=== PATIENT | female | born 1965 | race Two or more races ===

== ENCOUNTER 2016-07-26 08:13 | Outpatient (CLI) | payer BC ==
[2016-07-26 09:21] LABS: BASOPHILS % (AUTO) 0.6 % (0.0-2.0); DIFF TOTAL % 100 %; EOSINOPHILS # (AUTO) 0.4 /CMM (0.0-0.7); EOSINOPHILS % (AUTO) 5.5 % (0.0-6.0); HEMATOCRIT 48 % (33-45); LYMPHOCYTES # (AUTO) 2.2 /CMM (0.8-4.8); LYMPHOCYTES % (AUTO) 28.5 % (20.0-44.0); MEAN CORPUSCULAR HEMOGLOBIN 29 PG (26.0-33.0); MEAN CORPUSCULAR HGB CONC 34 g/dl (31.0-36.0); MEAN CORPUSCULAR VOLUME 85 fL (82-100); MONOCYTES # (AUTO) 0.5 /CMM (0.1-1.30); MONOCYTES % (AUTO) 6.4 % (2.0-12.0); NEUTROPHILS # (AUTO) 4.5 /CMM (1.8-8.9); PLATELET COUNT (AUTO) 309 /CMM (150-450); RED BLOOD CELL COUNT(AUTO) 5.61 MIL/uL (4.0-5.2); WHITE BLOOD COUNT (AUTO) 7.6 K/uL (4.3-11.0)
[2016-07-26 09:23] LABS: ADD UA MICROSCOPIC NO; KETONES,URINE NEGATIVE (NEGATIVE); LEUKOCYTE ESTERASE ,URINE NEGATIVE (NEGATIVE); PH,URINE 5.5 (5.0-8.0)
[2016-07-26 09:38] LABS: ALBUMIN 3.9 g/dL (3.4-5.0); BILIRUBIN,TOTAL 0.5 mg/dL (0.2-1.0); CALCIUM, SERUM 9.3 mg/dL (8.5-10.1); CREATININE 0.9 mg/dL (0.6-1.3); POTASSIUM 4.1 mmol/L (3.5-5.1); TOTAL PROTEIN, SERUM 8.1 g/dL (6.4-8.2)
[2016-07-26 09:42] LABS: THYROID STIMULATING HORMONE 0.976 uIU/mL (0.358-3.74); URIC ACID 6.6 mg/dL (2.6-7.2)
== END 2016-07-26 23:59 | disposition home or self-care (01) ==
LOC: LAB 08:13
PROVIDERS: ATTEND Family Medicine
DX: M54.9 Dorsalgia, unspecified (principal); I10 Essential (primary) hypertension; M77.32 Calcaneal spur, left foot; M12.88 Other specific arthropathies, not elsewhere classified, other specified site; M25.521 Pain in right elbow; M79.672 Pain in left foot
CPT/HCPCS: 36415; 72100-TC; 73080-TC; 73630-TC; 80053-TC; 80061-TC; 81000-TC; 84439-TC; 84443-TC; 84550-TC; 85025-TC; 86431-TC

== ENCOUNTER 2016-07-29 08:11 | Outpatient (CLI) | payer BC | END 2016-07-29 23:59 | disposition home or self-care (01) | LOC: US 08:11 | PROVIDERS: ATTEND Family Medicine | DX: M54.9 Dorsalgia, unspecified (principal); M25.521 Pain in right elbow; M79.672 Pain in left foot | CPT/HCPCS: 76770-TC ==

== ENCOUNTER 2017-06-16 08:35 | Outpatient (CLI) | payer BC ==
[2017-06-16 09:57] LABS: APPEARANCE,URINE CLEAR (CLEAR); BILIRUBIN,URINE NEGATIVE (NEGATIVE); BLOOD, URINE NEGATIVE Ery/uL (NEGATIVE); COLOR,URINE YELLOW (YELLOW); KETONES,URINE NEGATIVE (NEGATIVE); LEUKOCYTE ESTERASE ,URINE NEGATIVE (NEGATIVE); NITRITE, URINE NEGATIVE (NEGATIVE); PH,URINE 5.5 (5.0-8.0); PROTEIN,URINE NEGATIVE (NEGATIVE); UGLUCOSE NEGATIVE (NEGATIVE); UROBILINOGEN,URINE 0.2 EU/dL (0.2)
[2017-06-16 10:32] LABS: ALBUMIN 3.9 g/dL (3.4-5.0); BILIRUBIN,TOTAL 0.4 mg/dL (0.2-1.0); CALCIUM, SERUM 8.9 mg/dL (8.5-10.1); CREATININE 0.8 mg/dL (0.6-1.3); POTASSIUM 3.5 mmol/L (3.5-5.1); TOTAL PROTEIN, SERUM 8.1 g/dL (6.4-8.2)
[2017-06-16 10:33] LABS: BASOPHILS # (AUTO) 0.1 /CMM (0.0-0.2); BASOPHILS % (AUTO) 0.7 % (0.0-2.0); EOSINOPHILS # (AUTO) 0.7 /CMM (0.0-0.7); EOSINOPHILS % (AUTO) 10.1 % (0.0-6.0); HEMATOCRIT 42 % (33-45); HEMOGLOBIN 14.6 g/dL (11.5-14.8); LYMPHOCYTES # (AUTO) 2.4 /CMM (0.8-4.8); LYMPHOCYTES % (AUTO) 32.6 % (20.0-44.0); MEAN CORPUSCULAR HEMOGLOBIN 29 PG (26.0-33.0); MEAN CORPUSCULAR HGB CONC 34 g/dl (31.0-36.0); MEAN CORPUSCULAR VOLUME 84 fL (82-100); MONOCYTES # (AUTO) 0.7 /CMM (0.1-1.30); MONOCYTES % (AUTO) 10.1 % (2.0-12.0); NEUTROPHILS # (AUTO) 3.4 /CMM (1.8-8.9); NEUTROPHILS % (AUTO) 46.5 % (43.0-81.0); PLATELET COUNT (AUTO) 314 /CMM (150-450); RDW COEFFICIENT OF VARIATION 11.9 (11.5-15.0); RED BLOOD CELL COUNT(AUTO) 5.03 MIL/uL (4.0-5.2); WHITE BLOOD COUNT (AUTO) 7.3 K/uL (4.3-11.0)
[2017-06-16 10:41] LABS: THYROID STIMULATING HORMONE 2.627 uIU/mL (0.358-3.74)
== END 2017-06-16 23:59 | disposition home or self-care (01) ==
LOC: LAB 08:35
PROVIDERS: ATTEND Family Medicine
DX: Z00.01 Encounter for general adult medical examination with abnormal findings (principal); Z11.59 Encounter for screening for other viral diseases; E55.9 Vitamin D deficiency, unspecified; E73.9 Lactose intolerance, unspecified; I10 Essential (primary) hypertension
CPT/HCPCS: 36415; 71046; 80053-TC; 80061-TC; 81000-TC; 82306; 84439-TC; 84443-TC; 85025-TC; 86706; 86709-TC; 86803

== ENCOUNTER 2017-11-09 08:27 | Outpatient (CLI) | payer BC ==
[2017-11-09 09:01] LABS: APPEARANCE,URINE CLEAR (CLEAR); BILIRUBIN,URINE NEGATIVE (NEGATIVE); BLOOD, URINE NEGATIVE Ery/uL (NEGATIVE); COLOR,URINE YELLOW (YELLOW); KETONES,URINE NEGATIVE (NEGATIVE); LEUKOCYTE ESTERASE ,URINE TRACE (NEGATIVE); NITRITE, URINE NEGATIVE (NEGATIVE); PH,URINE 5.5 (5.0-8.0); PROTEIN,URINE NEGATIVE (NEGATIVE); UGLUCOSE NEGATIVE (NEGATIVE); UROBILINOGEN,URINE 0.2 EU/dL (0.2)
[2017-11-09 09:21] LABS: BACTERIA,URINE None seen /HPF (None Seen); RBC,URINE NONE SEEN /HPF (0-2); SQUAMOUS EPITHELIAL CELL,UR Few /HPF (None Seen); WBC,URINE 0-2 /HPF (0-3)
== END 2017-11-09 23:59 | disposition home or self-care (01) ==
LOC: LAB 08:27
PROVIDERS: ATTEND Family Medicine
DX: M54.5 Low back pain (principal)
CPT/HCPCS: 81000-TC

== ENCOUNTER → 2017-12-16 | Outpatient (CLI) | payer BC | END | disposition home or self-care (01) | LOC: LAB 08:31 | PROVIDERS: ATTEND Family Medicine | DX: Z12.4 Encounter for screening for malignant neoplasm of cervix (principal); Z11.3 Encounter for screening for infections with a predominantly sexual mode of transmission | CPT/HCPCS: 87491; 87591; 88142 ==

== ENCOUNTER 2018-12-07 08:07 | Outpatient (CLI) | payer BC | END 2018-12-07 23:59 | disposition home or self-care (01) | LOC: CARD 08:07 | PROVIDERS: ATTEND Family Medicine | DX: M17.12 Unilateral primary osteoarthritis, left knee (principal); I70.0 Atherosclerosis of aorta; I51.7 Cardiomegaly | CPT/HCPCS: 71046; 73562; 93307-TC ==

== ENCOUNTER 2019-03-22 07:34 | Outpatient (CLI) | payer BC ==
[2019-03-22 08:42] LABS: BASOPHILS # (AUTO) 0.1 /CMM (0.0-0.2); EOSINOPHILS % (AUTO) 6.9 % (0.0-6.0); HEMATOCRIT 42 % (33-45); LYMPHOCYTES # (AUTO) 2.1 /CMM (0.8-4.8); LYMPHOCYTES % (AUTO) 23.3 % (20.0-44.0); MEAN CORPUSCULAR HGB CONC 34 g/dl (31.0-36.0); MEAN CORPUSCULAR VOLUME 86 fL (82-100); MONOCYTES # (AUTO) 0.7 /CMM (0.1-1.30); MONOCYTES % (AUTO) 7.6 % (2.0-12.0); NEUTROPHILS # (AUTO) 5.5 /CMM (1.8-8.9); NEUTROPHILS % (AUTO) 61.2 % (43.0-81.0); PLATELET COUNT (AUTO) 327 /CMM (150-450); RED BLOOD CELL COUNT(AUTO) 4.84 MIL/uL (4.0-5.2)
[2019-03-22 08:55] LABS: APPEARANCE,URINE Clear (CLEAR); BILIRUBIN,URINE Negative (NEGATIVE); BLOOD, URINE Negative Ery/uL (NEGATIVE); COLOR,URINE Yellow (YELLOW); KETONES,URINE Negative (NEGATIVE); LEUKOCYTE ESTERASE ,URINE Negative (NEGATIVE); NITRITE, URINE Negative (NEGATIVE); PROTEIN,URINE Negative (NEGATIVE); UGLUCOSE Negative (NEGATIVE); UROBILINOGEN,URINE 0.2 EU/dL (0.2)
[2019-03-22 08:56] LABS: ALBUMIN 3.9 g/dL (3.4-5.0); BILIRUBIN,TOTAL 0.3 mg/dL (0.2-1.0); CREATININE 0.8 mg/dL (0.6-1.3); POTASSIUM 3.1 mmol/L (3.5-5.1)
[2019-03-22 09:03] LABS: THYROID STIMULATING HORMONE 2.115 uIU/mL (0.358-3.74)
== END 2019-03-22 23:59 | disposition home or self-care (01) ==
LOC: LAB 07:34
PROVIDERS: ATTEND Family Medicine
DX: R73.9 Hyperglycemia, unspecified (principal)
CPT/HCPCS: 36415; 80053-TC; 80061-TC; 81000-TC; 84439-TC; 84443-TC; 85025-TC

== ENCOUNTER 2019-03-23 09:16 | Outpatient (CLI) | payer BC | END 2019-03-23 23:59 | disposition home or self-care (01) | LOC: RAD 09:16 | PROVIDERS: ATTEND Family Medicine | DX: J45.901 Unspecified asthma with (acute) exacerbation (principal); R06.00 Dyspnea, unspecified | CPT/HCPCS: 71046 ==

== ENCOUNTER 2019-07-30 11:50 | Outpatient (CLI) | payer BC | END 2019-07-30 23:59 | disposition home or self-care (01) | LOC: RAD 11:50 | PROVIDERS: ATTEND Family Medicine | DX: M77.32 Calcaneal spur, left foot (principal); M77.31 Calcaneal spur, right foot; M51.36 Other intervertebral disc degeneration, lumbar region; M41.86 Other forms of scoliosis, lumbar region; M48.07 Spinal stenosis, lumbosacral region; M25.512 Pain in left shoulder | CPT/HCPCS: 72110-TC; 73030-TC; 73630-TC ==

== ENCOUNTER 2019-08-14 08:10 | Outpatient (CLI) | payer BC | END 2019-08-14 23:59 | disposition home or self-care (01) | LOC: WOU 08:10 | PROVIDERS: ATTEND Podiatrist Foot & Ankle Surgery | DX: G57.51 Tarsal tunnel syndrome, right lower limb (principal); M72.2 Plantar fascial fibromatosis; M77.31 Calcaneal spur, right foot; M77.32 Calcaneal spur, left foot; M79.671 Pain in right foot; R60.0 Localized edema; I10 Essential (primary) hypertension | CPT/HCPCS: G0463 ==

== ENCOUNTER 2019-11-11 02:00 | Emergency (ER) | payer BC, OTHER ==
[2019-11-11 02:11] VITALS: BP 138/72
--- NOTE | 2019-11-11 02:20 | NUR ---
APR[facility] SENT TO LAB
== END 2019-11-11 02:22 | disposition home or self-care (01) ==
LOC: ER 02:02
DX: Z03.818 Encounter for observation for suspected exposure to other biological agents ruled out (principal)
CPT/HCPCS: 99283; U0003

== ENCOUNTER 2019-12-09 02:08 | Emergency (ER) | payer OTHER ==
[~2019-12-09] VITALS: Ht 165.1 cm; Wt 95.3 kg
[2019-12-09 02:08] VITALS: BP 131/83
--- NOTE | 2019-12-12 | NUR ---
RECEIVED A CALL FROM LAB REPORTING NEGATIVE COVID TEST RESULT
== END 2019-12-09 03:22 | disposition home or self-care (01) ==
LOC: ER 02:08
DX: Z03.818 Encounter for observation for suspected exposure to other biological agents ruled out (principal)
CPT/HCPCS: 99283; C9803; U0003

== ENCOUNTER 2019-12-17 08:14 | Emergency (ER) | payer OTHER ==
[~2019-12-17] VITALS: Ht 165.1 cm; Wt 90.7 kg
[2019-12-17 08:20] VITALS: BP 167/103
--- NOTE | 2019-12-17 08:37 | NUR ---
Patient discharged to home in stable condition. Written and verbal after care instructions given. Patient verbalizes understanding of instruction.
== END 2019-12-17 08:37 | disposition home or self-care (01) ==
LOC: ER 08:18
DX: Z03.818 Encounter for observation for suspected exposure to other biological agents ruled out (principal)
CPT/HCPCS: 99283; C9803; U0003

== ENCOUNTER 2019-12-24 08:38 | Outpatient (CLI) | payer BC | END 2019-12-24 23:59 | disposition home or self-care (01) | LOC: LAB 08:38 | PROVIDERS: ATTEND Family Medicine | DX: Z75.3 Unavailability and inaccessibility of health-care facilities (principal) ==

== ENCOUNTER 2019-12-24 09:22 | Emergency (ER) | payer BC, OTHER ==
[~2019-12-24] VITALS: Ht 165.1 cm; Wt 90.7 kg
[2019-12-24 09:25] VITALS: BP 154/91
== END 2019-12-24 09:51 | disposition home or self-care (01) ==
LOC: ER 09:29
DX: Z03.818 Encounter for observation for suspected exposure to other biological agents ruled out (principal)
CPT/HCPCS: 99283; C9803; U0003

== ENCOUNTER 2020-01-04 03:26 | Emergency (ER) | payer BC, OTHER ==
[~2020-01-04] VITALS: Ht 165.1 cm; Wt 96.6 kg
[2020-01-04 03:34] VITALS: BP 139/83
== END 2020-01-04 03:48 | disposition home or self-care (01) ==
LOC: ER 03:28
DX: Z11.59 Encounter for screening for other viral diseases (principal); J45.909 Unspecified asthma, uncomplicated; I10 Essential (primary) hypertension
CPT/HCPCS: 99283; C9803; U0003

== ENCOUNTER 2020-01-11 02:12 | Emergency (ER) | payer OTHER ==
[~2020-01-11] VITALS: Ht 165.1 cm; Wt 96.6 kg
[2020-01-11 02:19] VITALS: BP 122/75
--- NOTE | 2020-01-11 02:38 | NUR ---
COVID SWAB SENT
--- NOTE | 2020-01-11 21:18 | NUR ---
LAB CALLED REGARDING COVID NEGATIVE RESULT.
== END 2020-01-11 02:38 | disposition home or self-care (01) ==
LOC: ER 02:18
DX: Z11.59 Encounter for screening for other viral diseases (principal); J45.909 Unspecified asthma, uncomplicated
CPT/HCPCS: 99283; C9803; U0003

== ENCOUNTER 2020-01-19 02:11 | Emergency (ER) | payer OTHER ==
[~2020-01-19] VITALS: Ht 165.1 cm; Wt 95.3 kg
[2020-01-19 02:21] VITALS: BP 139/87
== END 2020-01-19 02:32 | disposition home or self-care (01) ==
LOC: ER 02:11
DX: Z11.59 Encounter for screening for other viral diseases (principal); J45.909 Unspecified asthma, uncomplicated; I10 Essential (primary) hypertension
CPT/HCPCS: 99283; C9803; U0003

== ENCOUNTER 2020-01-25 02:12 | Emergency (ER) | payer OTHER ==
[~2020-01-25] VITALS: Ht 165.1 cm; Wt 95.3 kg
[2020-01-25 02:12] VITALS: BP 134/69
== END 2020-01-25 02:42 | disposition home or self-care (01) ==
LOC: ER 02:36
DX: Z20.828 Contact with and (suspected) exposure to other viral communicable diseases (principal); J45.909 Unspecified asthma, uncomplicated; I10 Essential (primary) hypertension
CPT/HCPCS: 99283; C9803; U0003

== ENCOUNTER 2020-02-01 00:40 | Emergency (ER) | payer OTHER ==
[~2020-02-01] VITALS: Ht 165.1 cm; Wt 95.3 kg
[2020-02-01 00:40] VITALS: BP 123/75
--- NOTE | 2020-02-02 06:39 | NUR ---
LAB CALLED REGARDING NEGATIVE COVID RESULT
== END 2020-02-01 01:18 | disposition home or self-care (01) ==
LOC: ER 00:44
DX: Z20.828 Contact with and (suspected) exposure to other viral communicable diseases (principal); I10 Essential (primary) hypertension; J45.909 Unspecified asthma, uncomplicated
CPT/HCPCS: 99283; C9803; U0003

== ENCOUNTER 2020-02-08 01:56 | Emergency (ER) | payer OTHER ==
[~2020-02-08] VITALS: Ht 165.1 cm; Wt 95.3 kg
[2020-02-08 01:58] VITALS: BP 130/73
== END 2020-02-08 02:15 | disposition home or self-care (01) ==
LOC: ER 01:56
DX: Z20.828 Contact with and (suspected) exposure to other viral communicable diseases (principal); J45.909 Unspecified asthma, uncomplicated; I10 Essential (primary) hypertension
CPT/HCPCS: 99283; C9803; U0003

== ENCOUNTER 2020-02-16 01:49 | Emergency (ER) | payer OTHER ==
[~2020-02-16] VITALS: Ht 165.1 cm; Wt 95.3 kg
[2020-02-16 01:55] VITALS: BP 132/62
--- NOTE | 2020-02-16 02:15 | NUR ---
COVID SWAB COLLECT AND SENT TO LAB.
== END 2020-02-16 02:15 | disposition home or self-care (01) ==
LOC: ER 01:49
DX: Z20.828 Contact with and (suspected) exposure to other viral communicable diseases (principal); J45.909 Unspecified asthma, uncomplicated; I10 Essential (primary) hypertension
CPT/HCPCS: 99283; C9803; U0003

== ENCOUNTER 2020-02-19 08:46 | Outpatient (CLI) | payer BC ==
[2020-02-19 09:58] LABS: ALBUMIN 3.6 g/dL (3.4-5.0); BILIRUBIN,TOTAL 0.3 mg/dL (0.2-1.0); CALCIUM, SERUM 8.5 mg/dL (8.5-10.1); CREATININE 0.9 mg/dL (0.6-1.3); POTASSIUM 3.5 mmol/L (3.5-5.1); TOTAL PROTEIN, SERUM 7.8 g/dL (6.4-8.2)
[2020-02-20 16:48] LABS: *ANA ANTI-CENTROMERE B AB <0.2 AI (0.0-0.9); *ANA ANTI-DNA(DS) AB, QN 2 IU/mL (0-9); *ANA ANTI-JO-1 <0.2 AI (0.0-0.9); *ANA ANTICHROMATIN ANTIBODY <0.2 AI (0.0-0.9); *ANA RNP ANTIBODIES 0.2 AI (0.0-0.9); *ANA SJOGREN'S ANTI-SS-A <0.2 AI (0.0-0.9); *ANA SJOGREN'S ANTI-SS-B <0.2 AI (0.0-0.9); *ANAANTI-SCLERODERMA-70 AB <0.2 AI (0.0-0.9); *ANASMITH AB <0.2 AI (0.0-0.9)
== END 2020-02-19 23:59 | disposition home or self-care (01) ==
LOC: LAB 08:46
PROVIDERS: ATTEND Family Medicine
DX: H10.9 Unspecified conjunctivitis (principal)
CPT/HCPCS: 36415; 80053-TC; 86225; 86235; 86431-TC

== ENCOUNTER 2020-02-22 01:28 | Emergency (ER) | payer BC, OTHER ==
[~2020-02-22] VITALS: Ht 165.1 cm; Wt 95.3 kg
[2020-02-22 01:31] VITALS: BP 132/73
== END 2020-02-22 01:54 | disposition home or self-care (01) ==
LOC: ER 01:33
DX: Z20.828 Contact with and (suspected) exposure to other viral communicable diseases (principal); J45.909 Unspecified asthma, uncomplicated; I10 Essential (primary) hypertension
CPT/HCPCS: 99283; C9803; U0003

== ENCOUNTER 2020-03-07 01:24 | Emergency (ER) | payer OTHER ==
[~2020-03-07] VITALS: Ht 167.6 cm; Wt 72.6 kg
[2020-03-07 01:27] VITALS: BP 132/76
== END 2020-03-07 01:38 | disposition home or self-care (01) ==
LOC: ER 01:27
DX: Z20.828 Contact with and (suspected) exposure to other viral communicable diseases (principal); J45.909 Unspecified asthma, uncomplicated; I10 Essential (primary) hypertension
CPT/HCPCS: 99283; C9803; U0003

== ENCOUNTER 2020-03-14 01:09 | Emergency (ER) | payer OTHER ==
[~2020-03-14] VITALS: Ht 167.6 cm; Wt 72.6 kg
[2020-03-14 01:12] VITALS: BP 124/62
== END 2020-03-14 01:24 | disposition home or self-care (01) ==
LOC: ER 01:13
DX: Z20.828 Contact with and (suspected) exposure to other viral communicable diseases (principal); J45.909 Unspecified asthma, uncomplicated; I10 Essential (primary) hypertension
CPT/HCPCS: 99283; C9803; U0003

== ENCOUNTER → 2020-03-20 | Emergency (ER) | payer OTHER ==
[~2020-03-20] VITALS: Ht 167.6 cm; Wt 72.6 kg
[2020-03-20 02:08] VITALS: BP 137/84
--- NOTE | 2020-03-20 02:19 | NUR ---
UNABLE TO DEPART DUE TO [employer] APPLICATION ERROR.
== END | disposition home or self-care (01) ==
LOC: ER 02:04
DX: Z20.828 Contact with and (suspected) exposure to other viral communicable diseases (principal)
CPT/HCPCS: 99283; C9803; U0003

== ENCOUNTER 2020-03-28 01:31 | Emergency (ER) | payer OTHER ==
[~2020-03-28] VITALS: Ht 165.1 cm; Wt 90.7 kg
[2020-03-28 01:43] VITALS: BP 138/98
== END 2020-03-28 01:53 | disposition home or self-care (01) ==
LOC: ER 01:37
DX: Z20.828 Contact with and (suspected) exposure to other viral communicable diseases (principal); I10 Essential (primary) hypertension
CPT/HCPCS: 99283; U0003; C9803

== ENCOUNTER 2020-04-04 02:53 | Emergency (ER) | payer OTHER ==
[~2020-04-04] VITALS: Ht 165.1 cm; Wt 90.7 kg
[2020-04-04 02:54] VITALS: BP 124/62
== END 2020-04-04 03:08 | disposition home or self-care (01) ==
LOC: ER 02:53
DX: Z20.828 Contact with and (suspected) exposure to other viral communicable diseases (principal); I10 Essential (primary) hypertension; J45.909 Unspecified asthma, uncomplicated
CPT/HCPCS: 99283; C9803; U0003

== ENCOUNTER 2020-04-12 02:15 | Emergency (ER) | payer OTHER ==
[~2020-04-12] VITALS: Ht 165.1 cm; Wt 90.7 kg
[2020-04-12 02:15] VITALS: BP 121/77
== END 2020-04-12 02:30 | disposition home or self-care (01) ==
LOC: ER 02:15
DX: Z20.828 Contact with and (suspected) exposure to other viral communicable diseases (principal); I10 Essential (primary) hypertension; J45.909 Unspecified asthma, uncomplicated
CPT/HCPCS: 99283; C9803; U0003

== ENCOUNTER 2020-04-17 04:05 | Emergency (ER) | payer OTHER ==
[~2020-04-17] VITALS: Ht 165.1 cm; Wt 90.7 kg
[2020-04-17 04:05] VITALS: BP 124/62
== END 2020-04-17 04:17 | disposition home or self-care (01) ==
LOC: ER 04:07
DX: Z20.828 Contact with and (suspected) exposure to other viral communicable diseases (principal); J45.909 Unspecified asthma, uncomplicated; I10 Essential (primary) hypertension
CPT/HCPCS: 99283; C9803; U0003

== ENCOUNTER 2020-05-01 03:45 | Emergency (ER) | payer OTHER ==
[~2020-05-01] VITALS: Ht 165.1 cm; Wt 90.7 kg
[2020-05-01 03:46] VITALS: BP 148/79
== END 2020-05-01 03:53 | disposition home or self-care (01) ==
LOC: ER 03:48
DX: Z20.828 Contact with and (suspected) exposure to other viral communicable diseases (principal); J45.909 Unspecified asthma, uncomplicated; I10 Essential (primary) hypertension
CPT/HCPCS: 99283; C9803; U0003

== ENCOUNTER 2020-05-08 04:21 | Emergency (ER) | payer OTHER ==
[~2020-05-08] VITALS: Ht 165.1 cm; Wt 90.7 kg
[2020-05-08 04:27] VITALS: BP 122/68
== END 2020-05-08 04:31 | disposition home or self-care (01) ==
LOC: ER 04:21
DX: Z20.828 Contact with and (suspected) exposure to other viral communicable diseases (principal); J45.909 Unspecified asthma, uncomplicated
CPT/HCPCS: 99283; C9803; U0003

== ENCOUNTER 2020-05-17 02:30 | Emergency (ER) | payer OTHER ==
[~2020-05-17] VITALS: Ht 165.1 cm; Wt 90.7 kg
[2020-05-17 02:34] VITALS: BP 127/79
== END 2020-05-17 03:03 | disposition home or self-care (01) ==
LOC: ER 02:36
DX: Z20.828 Contact with and (suspected) exposure to other viral communicable diseases (principal); J45.909 Unspecified asthma, uncomplicated; I10 Essential (primary) hypertension
CPT/HCPCS: 99283; C9803; U0003

== ENCOUNTER 2020-05-24 07:05 | Emergency (ER) | payer OTHER ==
[~2020-05-24] VITALS: Ht 165.1 cm; Wt 90.7 kg
[2020-05-24 07:08] VITALS: BP 134/62
--- NOTE | 2020-05-24 07:50 | NUR ---
covid 19 swab collected and sent to lab
--- NOTE | 2020-05-24 07:55 | NUR ---
Patient discharged to home in stable condition. Written and verbal after care instructions given. Patient verbalizes understanding of instruction.
== END 2020-05-24 07:55 | disposition home or self-care (01) ==
LOC: ER 07:06
DX: Z20.828 Contact with and (suspected) exposure to other viral communicable diseases (principal); J45.909 Unspecified asthma, uncomplicated; I10 Essential (primary) hypertension
CPT/HCPCS: 99283; C9803; U0003

== ENCOUNTER 2020-05-29 03:58 | Emergency (ER) | payer OTHER ==
[~2020-05-29] VITALS: Ht 165.1 cm; Wt 90.7 kg
[2020-05-29 04:00] VITALS: BP 132/64
== END 2020-05-29 04:17 | disposition home or self-care (01) ==
LOC: ER 03:58
DX: Z20.828 Contact with and (suspected) exposure to other viral communicable diseases (principal)
CPT/HCPCS: 99283; C9803; U0003

== ENCOUNTER 2020-06-07 02:52 | Emergency (ER) | payer OTHER ==
[~2020-06-07] VITALS: Ht 165.1 cm; Wt 90.7 kg
[2020-06-07 02:54] VITALS: BP 125/64
== END 2020-06-07 03:30 | disposition home or self-care (01) ==
LOC: ER 02:53
DX: Z20.828 Contact with and (suspected) exposure to other viral communicable diseases (principal)
CPT/HCPCS: 99283; C9803; U0003

== ENCOUNTER 2020-06-12 02:09 | Emergency (ER) | payer OTHER ==
[~2020-06-12] VITALS: Ht 162.6 cm; Wt 76.2 kg
[2020-06-12 02:11] VITALS: BP 126/73
== END 2020-06-12 02:28 | disposition home or self-care (01) ==
LOC: ER 02:09
DX: Z20.828 Contact with and (suspected) exposure to other viral communicable diseases (principal)
CPT/HCPCS: 99283; C9803; U0003

== ENCOUNTER 2020-06-14 04:39 | Emergency (ER) | payer OTHER ==
[~2020-06-14] VITALS: Ht 162.6 cm; Wt 76.2 kg
[2020-06-14 04:41] VITALS: BP 137/82
== END 2020-06-14 05:02 | disposition home or self-care (01) ==
LOC: ER 04:41
DX: Z20.828 Contact with and (suspected) exposure to other viral communicable diseases (principal)
CPT/HCPCS: 99283; C9803; U0003

== ENCOUNTER 2020-06-18 01:10 | Emergency (ER) | payer OTHER ==
[~2020-06-18] VITALS: Ht 162.6 cm; Wt 76.2 kg
[2020-06-18 01:12] VITALS: BP 134/82
== END 2020-06-18 01:32 | disposition home or self-care (01) ==
LOC: ER 01:12
DX: Z20.822 Contact with and (suspected) exposure to COVID-19 (principal); I10 Essential (primary) hypertension; J45.909 Unspecified asthma, uncomplicated
CPT/HCPCS: 99283; C9803; U0003

== ENCOUNTER 2020-06-21 02:31 | Emergency (ER) | payer OTHER ==
[~2020-06-21] VITALS: Ht 162.6 cm; Wt 76.2 kg
[2020-06-21 02:31] VITALS: BP 124/68
== END 2020-06-21 05:53 | disposition home or self-care (01) ==
LOC: ER 02:31
DX: Z20.822 Contact with and (suspected) exposure to COVID-19 (principal); I10 Essential (primary) hypertension; J45.909 Unspecified asthma, uncomplicated
CPT/HCPCS: 99283; C9803; U0003

== ENCOUNTER 2020-06-26 01:56 | Emergency (ER) | payer OTHER ==
[~2020-06-26] VITALS: Ht 162.6 cm; Wt 76.2 kg
[2020-06-26 01:57] VITALS: BP 136/82
== END 2020-06-26 02:17 | disposition home or self-care (01) ==
LOC: ER 01:56
DX: Z20.822 Contact with and (suspected) exposure to COVID-19 (principal); J45.909 Unspecified asthma, uncomplicated; I10 Essential (primary) hypertension
CPT/HCPCS: 99283; C9803; U0003

== ENCOUNTER 2020-06-28 03:22 | Emergency (ER) | payer OTHER ==
[~2020-06-28] VITALS: Ht 162.6 cm; Wt 76.2 kg
[2020-06-28 03:33] VITALS: BP 132/61
== END 2020-06-28 04:02 | disposition home or self-care (01) ==
LOC: ER 03:27
DX: Z20.822 Contact with and (suspected) exposure to COVID-19 (principal); I10 Essential (primary) hypertension; J45.909 Unspecified asthma, uncomplicated
CPT/HCPCS: 99283; C9803; U0003

== ENCOUNTER 2020-07-04 02:10 | Emergency (ER) | payer OTHER ==
[~2020-07-04] VITALS: Ht 167.6 cm; Wt 76.2 kg
[2020-07-04 02:15] VITALS: BP 122/78
== END 2020-07-04 02:24 | disposition home or self-care (01) ==
LOC: ER 02:13
DX: Z20.822 Contact with and (suspected) exposure to COVID-19 (principal); J45.909 Unspecified asthma, uncomplicated; I10 Essential (primary) hypertension
CPT/HCPCS: 99283; C9803; U0003

== ENCOUNTER 2020-07-05 03:48 | Emergency (ER) | payer OTHER ==
[~2020-07-05] VITALS: Ht 167.6 cm; Wt 72.6 kg
[2020-07-05 03:50] VITALS: BP 121/62
== END 2020-07-05 05:38 | disposition home or self-care (01) ==
LOC: ER 03:48
DX: Z20.822 Contact with and (suspected) exposure to COVID-19 (principal); J45.909 Unspecified asthma, uncomplicated; I10 Essential (primary) hypertension
CPT/HCPCS: 99283; C9803; U0003

== ENCOUNTER 2020-07-10 02:17 | Emergency (ER) | payer OTHER ==
[~2020-07-10] VITALS: Ht 165.1 cm; Wt 76.2 kg
[2020-07-10 02:21] VITALS: BP 124/68
== END 2020-07-10 02:50 | disposition home or self-care (01) ==
LOC: ER 02:17
DX: Z20.822 Contact with and (suspected) exposure to COVID-19 (principal); J45.909 Unspecified asthma, uncomplicated; I10 Essential (primary) hypertension
CPT/HCPCS: 99283; C9803; U0003

== ENCOUNTER 2020-07-12 02:14 | Emergency (ER) | payer OTHER ==
[~2020-07-12] VITALS: Ht 165.1 cm; Wt 76.2 kg
[2020-07-12 02:15] VITALS: BP 141/82
== END 2020-07-12 02:51 | disposition home or self-care (01) ==
LOC: ER 02:14
DX: Z20.822 Contact with and (suspected) exposure to COVID-19 (principal); J45.909 Unspecified asthma, uncomplicated; I10 Essential (primary) hypertension
CPT/HCPCS: 99283; C9803; U0003

== ENCOUNTER 2020-07-15 10:15 | Outpatient (CLI) | payer BC, OTHER | END 2020-07-15 23:59 | disposition home or self-care (01) | LOC: MRI 10:15 | PROVIDERS: ATTEND Family Medicine | DX: S86.012A Strain of left Achilles tendon, initial encounter (principal); S93.492A Sprain of other ligament of left ankle, initial encounter; M19.072 Primary osteoarthritis, left ankle and foot; M72.2 Plantar fascial fibromatosis; M77.32 Calcaneal spur, left foot; M67.472 Ganglion, left ankle and foot; X58.XXXA Exposure to other specified factors, initial encounter; Y93.89 Activity, other specified; Y92.89 Other specified places as the place of occurrence of the external cause; Y99.8 Other external cause status | CPT/HCPCS: 73718-TC; 73721-TC ==

== ENCOUNTER 2020-07-16 00:34 | Emergency (ER) | payer BC, OTHER ==
[~2020-07-16] VITALS: Ht 165.1 cm; Wt 76.2 kg
[2020-07-16 00:39] VITALS: BP 131/77
== END 2020-07-16 01:42 | disposition home or self-care (01) ==
LOC: ER 00:40
DX: Z20.822 Contact with and (suspected) exposure to COVID-19 (principal); I10 Essential (primary) hypertension; J45.909 Unspecified asthma, uncomplicated
CPT/HCPCS: 99283; C9803; U0003

== ENCOUNTER 2020-07-18 00:22 | Emergency (ER) | payer OTHER ==
[~2020-07-18] VITALS: Ht 165.1 cm; Wt 76.2 kg
[2020-07-18 00:32] VITALS: BP 142/84
== END 2020-07-18 01:13 | disposition home or self-care (01) ==
LOC: ER 00:25
DX: Z20.822 Contact with and (suspected) exposure to COVID-19 (principal)
CPT/HCPCS: 99283; C9803; U0003

== ENCOUNTER 2020-07-18 23:38 | Emergency (ER) | payer OTHER ==
[~2020-07-18] VITALS: Ht 165.1 cm; Wt 76.2 kg
[2020-07-18 23:54] VITALS: BP 134/82
== END 2020-07-19 00:09 | disposition home or self-care (01) ==
LOC: ER 23:47
DX: Z20.822 Contact with and (suspected) exposure to COVID-19 (principal); I10 Essential (primary) hypertension; J45.909 Unspecified asthma, uncomplicated
CPT/HCPCS: 99283; C9803; U0003

== ENCOUNTER 2020-07-25 01:13 | Emergency (ER) | payer OTHER ==
[~2020-07-25] VITALS: Ht 165.1 cm; Wt 95.3 kg
[2020-07-25 01:15] VITALS: BP 136/68
== END 2020-07-25 01:45 | disposition home or self-care (01) ==
LOC: ER 01:15
DX: Z20.822 Contact with and (suspected) exposure to COVID-19 (principal); J45.909 Unspecified asthma, uncomplicated; I10 Essential (primary) hypertension
CPT/HCPCS: 99283; C9803; U0003

== ENCOUNTER 2020-07-26 01:44 | Emergency (ER) | payer OTHER ==
[~2020-07-26] VITALS: Ht 165.1 cm; Wt 90.7 kg
[2020-07-26 01:45] VITALS: BP 148/79
== END 2020-07-26 02:43 | disposition home or self-care (01) ==
LOC: ER 01:45
DX: Z20.822 Contact with and (suspected) exposure to COVID-19 (principal); J45.909 Unspecified asthma, uncomplicated; I10 Essential (primary) hypertension
CPT/HCPCS: 99283; C9803; U0003

== ENCOUNTER 2020-07-31 02:22 | Emergency (ER) | payer OTHER ==
[~2020-07-31] VITALS: Ht 167.6 cm; Wt 90.7 kg
[2020-07-31 02:23] VITALS: BP 118/78
== END 2020-07-31 03:06 | disposition home or self-care (01) ==
LOC: ER 02:22
DX: Z20.822 Contact with and (suspected) exposure to COVID-19 (principal); J45.909 Unspecified asthma, uncomplicated; I10 Essential (primary) hypertension
CPT/HCPCS: 99283; C9803; U0003

== ENCOUNTER 2020-08-02 02:05 | Emergency (ER) | payer OTHER ==
[~2020-08-02] VITALS: Ht 167.6 cm; Wt 90.7 kg
[2020-08-02 02:18] VITALS: BP 137/68
== END 2020-08-02 03:06 | disposition home or self-care (01) ==
LOC: ER 02:06
DX: Z20.822 Contact with and (suspected) exposure to COVID-19 (principal); J45.909 Unspecified asthma, uncomplicated; I10 Essential (primary) hypertension
CPT/HCPCS: 99283; C9803; U0003

== ENCOUNTER 2020-08-05 01:32 | Emergency (ER) | payer OTHER ==
[~2020-08-05] VITALS: Ht 165.1 cm; Wt 65.8 kg
[2020-08-05 01:34] VITALS: BP 121/72
== END 2020-08-05 02:30 | disposition home or self-care (01) ==
LOC: ER 01:32
DX: Z20.822 Contact with and (suspected) exposure to COVID-19 (principal); J45.909 Unspecified asthma, uncomplicated; I10 Essential (primary) hypertension
CPT/HCPCS: 99283; C9803; U0003

== ENCOUNTER 2020-08-14 02:17 | Emergency (ER) | payer OTHER ==
[~2020-08-14] VITALS: Ht 165.1 cm; Wt 65.8 kg
[2020-08-14 02:18] VITALS: BP 135/64
== END 2020-08-14 03:03 | disposition home or self-care (01) ==
LOC: ER 02:17
DX: Z20.822 Contact with and (suspected) exposure to COVID-19 (principal); J45.909 Unspecified asthma, uncomplicated; I10 Essential (primary) hypertension
CPT/HCPCS: 99283; C9803; U0003

== ENCOUNTER 2020-08-21 02:10 | Emergency (ER) | payer OTHER ==
[~2020-08-21] VITALS: Ht 165.1 cm; Wt 65.8 kg
[2020-08-21 02:11] VITALS: BP 133/67
== END 2020-08-21 03:11 | disposition home or self-care (01) ==
LOC: ER 02:10
DX: Z20.822 Contact with and (suspected) exposure to COVID-19 (principal); J45.909 Unspecified asthma, uncomplicated; I10 Essential (primary) hypertension
CPT/HCPCS: 99283; C9803; U0003

== ENCOUNTER 2020-08-30 03:45 | Emergency (ER) | payer OTHER ==
[~2020-08-30] VITALS: Ht 165.1 cm; Wt 65.8 kg
[2020-08-30 03:50] VITALS: BP 134/85
== END 2020-08-30 04:13 | disposition home or self-care (01) ==
LOC: ER 03:45
DX: Z20.822 Contact with and (suspected) exposure to COVID-19 (principal); J45.909 Unspecified asthma, uncomplicated; I10 Essential (primary) hypertension
CPT/HCPCS: 99283; C9803; U0003

== ENCOUNTER 2020-09-04 04:07 | Emergency (ER) | payer OTHER ==
[~2020-09-04] VITALS: Ht 165.1 cm; Wt 89.8 kg
[2020-09-04 04:17] VITALS: BP 122/69
== END 2020-09-04 05:00 | disposition home or self-care (01) ==
LOC: ER 04:07
DX: Z20.822 Contact with and (suspected) exposure to COVID-19 (principal)
CPT/HCPCS: 99283; C9803; U0003

== ENCOUNTER 2020-09-12 01:28 | Emergency (ER) | payer OTHER ==
[~2020-09-12] VITALS: Ht 167.6 cm; Wt 88.5 kg
[2020-09-12 01:41] VITALS: BP 118/77
== END 2020-09-12 02:37 | disposition home or self-care (01) ==
LOC: ER 01:30
DX: Z20.822 Contact with and (suspected) exposure to COVID-19 (principal); J45.909 Unspecified asthma, uncomplicated; I10 Essential (primary) hypertension
CPT/HCPCS: 99283; C9803; U0003

== ENCOUNTER 2020-09-18 03:06 | Emergency (ER) | payer OTHER ==
[~2020-09-18] VITALS: Ht 167.6 cm; Wt 88.5 kg
[2020-09-18 03:06] VITALS: BP 123/64
== END 2020-09-18 04:06 | disposition home or self-care (01) ==
LOC: ER 03:06
DX: Z20.822 Contact with and (suspected) exposure to COVID-19 (principal); I10 Essential (primary) hypertension; J45.909 Unspecified asthma, uncomplicated
CPT/HCPCS: 99283; C9803; U0003

== ENCOUNTER 2020-09-24 02:10 | Emergency (ER) | payer OTHER ==
[~2020-09-24] VITALS: Ht 167.6 cm; Wt 88.5 kg
[2020-09-24 02:11] VITALS: BP 124/62
== END 2020-09-24 02:58 | disposition home or self-care (01) ==
LOC: ER 02:13
DX: Z20.822 Contact with and (suspected) exposure to COVID-19 (principal); J45.909 Unspecified asthma, uncomplicated; I10 Essential (primary) hypertension
CPT/HCPCS: 99283; C9803; U0003

== ENCOUNTER 2020-10-01 03:42 | Emergency (ER) | payer OTHER ==
[~2020-10-01] VITALS: Ht 167.6 cm; Wt 88.5 kg
[2020-10-01 03:50] VITALS: BP 128/79
== END 2020-10-01 04:00 | disposition home or self-care (01) ==
LOC: ER 03:45
DX: Z20.822 Contact with and (suspected) exposure to COVID-19 (principal); J45.909 Unspecified asthma, uncomplicated; I10 Essential (primary) hypertension
CPT/HCPCS: 99283; C9803; U0003

== ENCOUNTER 2020-10-08 02:40 | Emergency (ER) | payer OTHER ==
[~2020-10-08] VITALS: Ht 167.6 cm; Wt 88.5 kg
[2020-10-08 02:45] VITALS: BP 133/65
== END 2020-10-08 03:06 | disposition home or self-care (01) ==
LOC: ER 02:45
DX: Z20.822 Contact with and (suspected) exposure to COVID-19 (principal); J45.909 Unspecified asthma, uncomplicated; I10 Essential (primary) hypertension
CPT/HCPCS: 99283; C9803; U0003

== ENCOUNTER 2020-10-18 02:27 | Emergency (ER) | payer OTHER ==
[~2020-10-18] VITALS: Ht 167.6 cm; Wt 88.5 kg
[2020-10-18 02:27] VITALS: BP 119/70
== END 2020-10-18 02:47 | disposition home or self-care (01) ==
LOC: ER 02:29
DX: Z20.822 Contact with and (suspected) exposure to COVID-19 (principal); J45.909 Unspecified asthma, uncomplicated
CPT/HCPCS: 99283; C9803; U0003

== ENCOUNTER 2020-11-14 12:13 | Outpatient (CLI) | payer BC, OTHER | END 2020-11-14 23:59 | disposition home or self-care (01) | LOC: MRI 12:13 | PROVIDERS: ATTEND Specialist | DX: M47.817 Spondylosis without myelopathy or radiculopathy, lumbosacral region (principal); M47.815 Spondylosis without myelopathy or radiculopathy, thoracolumbar region; M51.25 Other intervertebral disc displacement, thoracolumbar region; M51.16 Intervertebral disc disorders with radiculopathy, lumbar region | CPT/HCPCS: 72100-TC; 72148-TC ==

== ENCOUNTER 2021-02-04 08:46 | Outpatient (CLI) | payer BC ==
[2021-02-04 09:42] LABS: BASOPHILS # (AUTO) 0.1 K/uL (0.0-0.2); BASOPHILS % (AUTO) 0.9 % (0.0-2.0); EOSINOPHILS % (AUTO) 3.4 % (0.0-6.0); HEMATOCRIT 43 % (33-45); HEMOGLOBIN 14.5 g/dL (11.5-14.8); LYMPHOCYTES # (AUTO) 2.2 K/uL (0.8-4.8); LYMPHOCYTES % (AUTO) 30.3 % (20.0-44.0); MEAN CORPUSCULAR HGB CONC 34 g/dl (31.0-36.0); MEAN CORPUSCULAR VOLUME 87 fL (82-100); MONOCYTES # (AUTO) 0.5 K/uL (0.1-1.30); MONOCYTES % (AUTO) 6.9 % (2.0-12.0); NEUTROPHILS # (AUTO) 4.2 K/uL (1.8-8.9); NEUTROPHILS % (AUTO) 58.5 % (43.0-81.0); PLATELET COUNT (AUTO) 327 K/uL (150-450); RED BLOOD CELL COUNT(AUTO) 4.93 MIL/uL (4.0-5.2); WHITE BLOOD COUNT (AUTO) 7.2 K/uL (4.3-11.0)
[2021-02-04 09:55] LABS: ALBUMIN 3.7 g/dL (3.4-5.0); BILIRUBIN,TOTAL 0.8 mg/dL (0.2-1.0); CALCIUM, SERUM 8.7 mg/dL (8.5-10.1); CREATININE 0.8 mg/dL (0.6-1.3); POTASSIUM 3.5 mmol/L (3.5-5.1); TOTAL PROTEIN, SERUM 7.8 g/dL (6.4-8.2)
[2021-02-04 10:04] LABS: THYROID STIMULATING HORMONE 1.199 uIU/mL (0.358-3.74)
[2021-02-04 11:45] LABS: BILIRUBIN,URINE NEGATIVE (NEGATIVE); COLOR,URINE YELLOW (YELLOW); LEUKOCYTE ESTERASE ,URINE NEGATIVE (NEGATIVE); NITRITE, URINE NEGATIVE (NEGATIVE); PH,URINE 5.5 (5.0-8.0); PROTEIN,URINE TRACE mg/dl (NEGATIVE); UGLUCOSE NEGATIVE (NEGATIVE); UROBILINOGEN,URINE 0.2 EU/dL (0.2)
[2021-02-04 11:50] LABS: BACTERIA,URINE None seen /HPF (None Seen); RBC,URINE NONE SEEN /HPF (0-2); SQUAMOUS EPITHELIAL CELL,UR Few /HPF (None Seen); WBC,URINE NONE SEEN /HPF (0-3)
== END 2021-02-04 23:59 | disposition home or self-care (01) ==
LOC: RAD 08:46
PROVIDERS: ATTEND Family Medicine
DX: M17.11 Unilateral primary osteoarthritis, right knee (principal); M25.761 Osteophyte, right knee; M76.891 Other specified enthesopathies of right lower limb, excluding foot
CPT/HCPCS: 36415; 73562; 80053-TC; 80061-TC; 81001; 82306; 84439-TC; 84443-TC; 85025-TC

== ENCOUNTER 2021-02-25 07:55 | Outpatient (CLI) | payer BC | END 2021-02-25 23:59 | disposition home or self-care (01) | LOC: LAB 07:55 | PROVIDERS: ATTEND Family Medicine | DX: E87.6 Hypokalemia (principal) | CPT/HCPCS: 87086-TC ==

== ENCOUNTER → 2021-05-26 | Outpatient (CLI) | payer BC | END | disposition home or self-care (01) | LOC: RAD 11:28 | PROVIDERS: ATTEND Family Medicine | DX: M47.816 Spondylosis without myelopathy or radiculopathy, lumbar region (principal) | CPT/HCPCS: 73502 ==

== ENCOUNTER 2021-10-29 11:41 | Outpatient (CLI) | payer BC | END 2021-10-29 23:59 | disposition home or self-care (01) | LOC: MRI 11:41 | PROVIDERS: ATTEND Family Medicine | DX: M51.36 Other intervertebral disc degeneration, lumbar region (principal); M48.061 Spinal stenosis, lumbar region without neurogenic claudication; M51.27 Other intervertebral disc displacement, lumbosacral region; M48.8X7 Other specified spondylopathies, lumbosacral region | CPT/HCPCS: 72148-TC ==

== ENCOUNTER 2021-11-16 08:00 | Outpatient (CLI) | payer BC | END 2021-11-16 23:59 | disposition home or self-care (01) | LOC: RAD 08:00 | PROVIDERS: ATTEND Family Medicine | DX: M25.521 Pain in right elbow (principal); M25.522 Pain in left elbow; M65.30 Trigger finger, unspecified finger | CPT/HCPCS: 73070-TC; 73130-TC ==

== ENCOUNTER 2023-01-31 10:42 | Outpatient (CLI) | payer BC ==
[2023-01-31] MEDS ORDERED: GADOTERATE MEGLUMINE 10 MMOL/20 ML VIAL IV ONE (10:43)
== END 2023-01-31 23:59 | disposition home or self-care (01) ==
LOC: MRI 10:42
PROVIDERS: ATTEND Family Medicine
DX: I67.82 Cerebral ischemia (principal); M51.27 Other intervertebral disc displacement, lumbosacral region; M48.07 Spinal stenosis, lumbosacral region; M47.817 Spondylosis without myelopathy or radiculopathy, lumbosacral region; R20.9 Unspecified disturbances of skin sensation
CPT/HCPCS: 72148; 70553; A9575

== ENCOUNTER 2024-06-01 07:46 | Emergency (ER) | payer BC, OTHER ==
[~2024-06-01] VITALS: Ht 165.1 cm; Wt 95.3 kg
[2024-06-01 07:57] VITALS: BP 132/78; TEMP 97.9
[2024-06-01] MEDS: IBUPROFEN 600 MG TABLET PO ONE (08:30)
[2024-06-01] MEDS ORDERED: IBUPROFEN 600 MG TABLET ONE (09:45)
[2024-06-01] MEDS ORDERED: IBUP-1490 PO (09:55)
[2024-06-01 10:08] VITALS: O2SAT 99
== END 2024-06-01 10:43 | disposition home or self-care (01) ==
LOC: ER 07:46
DX: M17.12 Unilateral primary osteoarthritis, left knee (principal); J45.909 Unspecified asthma, uncomplicated; I10 Essential (primary) hypertension
CPT/HCPCS: 73564-TC

== ENCOUNTER 2024-12-28 07:47 | Outpatient (CLI) | payer BC, OTHER ==
[~2024-12-28 07:47] MED LIST: IBUP-1490 PO
[2024-12-28 08:44] LABS: PLATELET COUNT (AUTO) 289 K/uL (150-450); RED BLOOD CELL COUNT(AUTO) 5.69 MIL/uL (4.0-5.2); RED CELL DISTRIBUTION WIDTH 13.7 % (11.5-15.0); WHITE BLOOD COUNT (AUTO) 7.8 K/uL (4.3-11.0)
[2024-12-28 09:03] LABS: IRON, SERUM 62.0 ug/dl (50-175)
[2024-12-28 09:09] LABS: ERYTHROCYTE SEDIMENTATION RATE 31 MM/HR (0-30)
[2024-12-28 09:10] LABS: APPEARANCE,URINE CLEAR (CLEAR); BLOOD, URINE NEGATIVE Ery/uL (NEGATIVE); LEUKOCYTE ESTERASE ,URINE NEGATIVE (NEGATIVE); NITRITE, URINE NEGATIVE (NEGATIVE); UGLUCOSE NEGATIVE (NEGATIVE)
[2024-12-28 09:11] LABS: CREATINE KINASE, TOTAL 141.0 U/L (26-192)
[2024-12-28 09:26] LABS: ASPARTATE AMINOTRANSFERASE 20.0 U/L (15-37); CALCIUM, SERUM 10.0 mg/dL (8.5-10.1); CREATININE 1.1 mg/dL (0.6-1.3); SODIUM SERUM 139.0 mmol/L (136-145); TOTAL PROTEIN, SERUM 8.8 g/dL (6.4-8.2); UREA NITROGEN, BLOOD 23.0 mg/dL (7-18)
[2024-12-28 09:35] LABS: RHEUMATOID FACTOR SCREEN NEGATIVE (NEGATIVE)
[2024-12-29 04:07] LABS: HEPATITIS A AB, IgM Negative (Negative)
[2024-12-29 05:08] LABS: VIT D, 25-HYDROXY 31.3 ng/mL (30.0-100.0)
[2024-12-29 06:07] LABS: THYROID PEROXIDASE (TPO) AB 17 IU/mL (0-34)
[2024-12-29 07:07] LABS: COMPLEMENT C3, SERUM 156 mg/dL (82-167); COMPLEMENT C4, SERUM 37 mg/dL (12-38)
[2024-12-29 13:07] LABS: ACTH, PLASMA <1.5 pg/mL (7.2-63.3)
[2024-12-29 14:07] LABS: CORTISOL AM 1.0 ug/dL (6.2-19.4)
[2024-12-31 10:07] LABS: ALDOLASE 5.4 U/L (3.3-10.3)
[2024-12-31 11:08] LABS: *THROMBIN TIME 19.6 sec (0.0-23.0); *dRVVT 31.7 sec (0.0-47.0)
[2025-01-03 22:06] LABS: *ANTINUCLEAR ANTIBODIES,IFA Negative (.)
== END 2024-12-28 23:59 | disposition home or self-care (01) ==
LOC: LAB 07:47
PROVIDERS: ATTEND Internal Medicine Endocrinology, Diabetes & Metabolism
DX: I10 Essential (primary) hypertension (principal); M25.50 Pain in unspecified joint; D64.9 Anemia, unspecified; E78.00 Pure hypercholesterolemia, unspecified; R73.9 Hyperglycemia, unspecified; D51.9 Vitamin B12 deficiency anemia, unspecified; E55.9 Vitamin D deficiency, unspecified; Z79.899 Other long term (current) drug therapy
CPT/HCPCS: 36415; 80053-TC; 82024; 82085; 82306; 82533; 82550-TC; 82607-TC; 83516; 83540-TC; 84443-TC; 84550-TC; 85025-TC; 85613; 85652-TC; 85670; 85705; 85732; 86140-TC; 86200; 86376; 86431-TC; 86709